=== PATIENT | female | born 1980 | race Caucasian/White ===

== ENCOUNTER 2016-10-08 04:36 | Emergency (ER) | payer MEDICAID ==
[~2016-10-08] VITALS: Ht 152.4 cm; Wt 70.0 kg
[~2016-10-08 04:36] MED LIST: ACET325T33 PO; ALBU8.5H5 IH; HYDR-3498 PO; IBUP-1542 PO; IBUP400T22 PO
[2016-10-08 04:40] VITALS: Ht 152.4 cm; Wt 70.0 kg
[2016-10-08] MEDS ORDERED: KETOROLAC 60 MG INJ IM STA (05:00)
[2016-10-08 05:10] LABS: URINE BLOOD (Dip) POC 1+ (NEGATIVE)
--- NOTE | 2016-10-08 05:17 | ERD ---
ER Documentation Chief Complaint Date/Time DATE: 10/08/16 TIME: 05:10 Chief Complaint thoracic back pain with sudden onset denies any n/t to extremities HPI 36-year-old female presents here in emergency department for complaints of upper back pain rating to the lower back and bilateral pelvic area started tonight, sudden onset, sharp 6/10 scale, mildly better when she bends forward. Patient did not take any medications for pain. Patient denies hematuria or dysuria. Patient denies any incontinence. Patient denies any fever or chills. Patient denies any nausea or vomiting. Patient denies any trauma in the back. ROS All systems reviewed and are negative except as per history of present illness. Medications Home Meds Active Scripts Ibuprofen* (Motrin*) 600 Mg Tab, 600 MG PO Q6H Y for PAIN AND OR ELEVATED TEMP, #30 TAB Prov:JORGE COMBS NP 10/08/16 Hydrocodone/Acetaminophen (Keyport 5-325 Tablet) 1 Each Tablet, 1 TAB PO Q6H Y for SEVERE PAIN LEVEL 7-10, #20 TAB Prov:JORGE COMBS NP 10/08/16 Acetaminophen* (Tylenol*) 325 Mg Tablet, 2 TAB PO Q8 Y for PAIN AND OR ELEVATED TEMP, #20 TAB Prov:ADEN ORO MD 05/28/16 Ibuprofen* (Motrin*) 600 Mg Tab, 600 MG PO Q6H Y for PAIN AND OR ELEVATED TEMP, #30 TAB Prov:ADEN ORO MD 05/28/16 Ibuprofen* (Ibuprofen*) 400 Mg Tablet, 400 MG PO QID for PA, #30 TAB Prov:JORGE COMBS NP 02/24/15 Hydrocodone Bit-Acetaminophen* (Keyport*) 5-325 Mg Tab, 1 TAB PO Q4H Y for SEV, # 30 TAB Prov:JORGE COMBS NP 02/24/15 Reported Medications Albuterol Sulfate* (Albuterol Sulfate* HFA) 8.5 Gm Hfa.aer.ad, 2 PUFF IH Q4H Y for WHEEZING AND SOB, EA 02/20/14 Allergies Allergies: Coded Allergies: No Known Drug Allergies (Verified Allergy, 01/10/13) PMhx/Soc Medical and Surgical Hx: pt denies Medical Hx History of Surgery: Yes ( x2) Anesthesia Reaction: No Hx Neurological Disorder: No Hx Respiratory Disorders: No Hx Cardiac Disorders: No Hx Psychiatric Problems: No Hx Miscellaneous Medical Probl: No Hx Alcohol Use: No Hx Substance Use: No Hx Tobacco Use: No Smoking Status: Never smoker FmHx Family History: No coronary disease, No diabetes, No other Physical Exam Vitals Vital Signs Date Time Temp Pulse Resp B/P Pulse Ox O2 Delivery O2 Flow Rate FiO2 10/08/16 04:40 97.3 84 20 128/75 99 Physical Exam GENERAL: The patient is well developed and appropriate for usual state of health, in no apparent distress. CHEST: Clear to auscultation bilaterally. There are no rales, wheezes or rhonchi. HEART: Regular rate and rhythm. No murmurs, clicks, rubs or gallops. No S3 or S4. ABDOMEN: Soft, nontender and nondistended. Good bowel sounds. No rebound or guarding. No gross peritonitis. No gross organomegaly or masses. No Nina sign or McBurney point tenderness. BACK: No midline or flank tenderness. Muscle spasms noted in the paraspinal aspect of the lumbar and thoracic spine. Able to do full range of motion without any restriction. EXTREMITIES: Equal pulses bilaterally. There is no peripheral clubbing, cyanosis or edema. No focal swelling or erythema. Full range of motion. Grossly neurovascularly intact. NEURO: Alert and oriented. Cranial nerves 2-12 intact. Motor strength in all 4 extremities with 5/5 strength. Sensation grossly intact. Normal speech and gait. SKIN: There is no apparent rash or petechia. The skin is warm and dry. HEMATOLOGIC AND LYMPHATIC: There is no evidence of excessive bruising or lymphedema. No gross cervical, axillary, or inguinal lymphadenopathy. Results 24 hrs Laboratory Tests Test 10/08/16 05:10 Bedside Urine pH (LAB) 6.0 Bedside Urine Protein (LAB) Negative Bedside Urine Glucose (UA) Negative Bedside Urine Ketones (LAB) Negative Bedside Urine Blood 1+ Bedside Urine Nitrite (LAB) Negative Bedside Urine Leukocyte Esterase (L Negative Current Medications Medications (Trade) Dose Ordered Sig/Constantin Route PRN Reason Start Time Stop Time Status Last Admin Dose Admin Ketorolac Tromethamine (Toradol) 60 mg ONCE STAT IM 10/08/16 05:00 10/08/16 05:03 DC 10/08/16 05:11 Patient was given medication for pain here in emergency department, after treatment, patient verbalized feeling much better. Patient's pain is improved. PROCEDURE: CT Abdomen and Pelvis without contrast. CLINICAL INDICATION: Flank pain. TECHNIQUE: Routine tomographic images of the abdomen and pelvis were obtained from the domes of the diaphragm to the symphysis pubis. The patient was scanned withoutoral or intravenous contrast. Coronal and sagittal reformatted images were obtained from the axial source images. Images were reviewed on a high-resolution PACS workstation. One or more of the following dose reduction techniques were used: Automated exposure control, Adjustment of the mA and/or kV according to patient size, and/ or Use of iterative reconstruction technique. The total exam CTDI equals 11.52 mGy and the total exam DLP equals 664.71 mGy-cm. COMPARISON: CT abdomen and pelvis dated 02/24/2015 FINDINGS: The visualized portions of the lung bases are clear. Evaluation of the intra -abdominal solid organs is limited on this noncontrast examination. The liver appears normal in size. There is no intra or extrahepatic biliary dilatation. The gallbladder is unremarkable by CT criteria. The spleen, pancreas, and adrenal glands are unremarkable. The kidneys are symmetric in size. No renal, ureteral, or bladder calculi are identified. No perinephric inflammatory changes are identified. The urinary bladder is grossly unremarkable. The bowel demonstrates normal course and caliber. There is no evidence of bowel obstruction. The appendix is normal in appearance. No intraperitoneal free fluid, free air or abscess is identified. There is an IUD in place. The uterus and adnexa are otherwise unremarkable. The aorta is normal in caliber. No retroperitoneal, mesenteric, or inguinal lymphadenopathy is identified. There is a small fat-containing umbilical hernia. The osseous structures are unremarkable. No significant subcutaneous soft tissue abnormalities are seen. IMPRESSION: 1. Limited, noncontrast CT the abdomen and pelvis. No acute intra-abdominal abnormality is appreciated. 2. IUD in place. RPTAT: HH .Bebe Mcclure MD, MD Date Time Electronically viewed and signed by .Bebe Mcclure MD, MD on 10/08/2016 05 :53 .G/ CC: JORGE COMBS NP Procedures/MDM Medical Decision Making: Patient symptoms is consistent with possible renal colic, +1 blood in the urine, possibly causing the pain, it can be also musculoskeletal pain. There is low suspicion for abdominal emergencies at this time. Patients abdominal exam is normal at this time. Patients radiology exam does not show any abdominal emergencies at this time. There is low suspicion for appendicitis, cholecystitis, abdominal aortic aneurysms or peritonitis at this time. There is low suspicion for sepsis. Patient appears well and is hemodynamically stable. Disposition: Home. Condition: Stable Prescription Keyport, ibuprofen, flexeril Instructions: Patient is advised to take medications as prescribed. Patient is advised to rest, increase fluid intake and do avoid heavy lifting. Patient is advised that if symptoms are worse, severe abdominal pain, uncontrolled vomiting , high fever, severe flank pain, worst signs and symptoms, to return to the emergency department immediately. Otherwise, patient can follow up with primary care doctor in 5-7 days. Departure Diagnosis: Primary Impression: Back pain Back pain location: low back pain Chronicity: acute Back pain laterality: bilateral Sciatica presence: without sciatica Qualified Code: M54.5 - Acute bilateral low back pain without sciatica Condition: Stable Patient Instructions: Back Pain (Acute Or Chronic) Additional Instructions: Patient is advised to take medications as prescribed. Patient is advised to rest, increase fluid intake and do avoid heavy lifting. Patient is advised that if symptoms are worse, severe abdominal pain, uncontrolled vomiting, high fever , severe flank pain, worst signs and symptoms, to return to the emergency department immediately. Otherwise, patient can follow up with primary care doctor in 5-7 days. JORGE COMBS NP Oct 08, 2016 05:16
--- NOTE | 2016-10-08 05:53 | RADRPT ---
PROCEDURE: CT Abdomen and Pelvis without contrast. CLINICAL INDICATION: Flank pain. TECHNIQUE: Routine tomographic images of the abdomen and pelvis were obtained from the domes of th e diaphragm to the symphysis pubis. The patient was scanned withoutoral or intravenous contrast. C oronal and sagittal reformatted images were obtained from the axial source images. Images were revie wed on a high-resolution PACS workstation. One or more of the following dose reduction techniques were used: Automated exposure control, Adjust ment of the mA and/or kV according to patient size, and/or Use of iterative reconstruction technique . The total exam CTDI equals 11.52 mGy and the total exam DLP equals 664.71 mGy-cm. COMPARISON: CT abdomen and pelvis dated 02/24/2015 FINDINGS: The visualized portions of the lung bases are clear. Evaluation of the intra-abdominal solid org ans is limited on this noncontrast examination. The liver appears normal in size. There is no intr a or extrahepatic biliary dilatation. The gallbladder is unremarkable by CT criteria. The spleen, pancreas, and adrenal glands are unremarkable. The kidneys are symmetric in size. No renal, ureteral, or bladder calculi are identified. No perine phric inflammatory changes are identified. The urinary bladder is grossly unremarkable. The bowel demonstrates normal course and caliber. There is no evidence of bowel obstruction. The appendix is normal in appearance. No intraperitoneal free fluid, free air or abscess is identified. There is an IUD in place. The uterus and adnexa are otherwise unremarkable. The aorta is normal i n caliber. No retroperitoneal, mesenteric, or inguinal lymphadenopathy is identified. There is a sm all fat-containing umbilical hernia. The osseous structures are unremarkable. No significant subcutaneous soft tissue abnormalities are seen. IMPRESSION: 1. Limited, noncontrast CT the abdomen and pelvis. No acute intra-abdominal abnormality is appreci ated. 2. IUD in place. RPTAT: HH .Bebe Mcclure MD, Date Time Electronically viewed and signed by .Bebe Mcclure MD, MD on 10/08/2016 05:53 .G/
[2016-10-08] MEDS ORDERED: IBUP-1542 PO (05:54)
[2016-10-08] MEDS ORDERED: HYDR-906 PO (05:54)
== END 2016-10-08 06:05 | disposition home or self-care (01) ==
LOC: FTE 04:36
DX: M54.5 Low back pain (principal); R10.2 Pelvic and perineal pain
CPT/HCPCS: 74176; 81003; 96372; J1885; Z7502